=== PATIENT | female | born 1980 | race Caucasian/White ===

== ENCOUNTER 2018-02-12 14:41 | Emergency (ER) | payer OTHER ==
[2018-02-12 15:17] VITALS: TEMP 98
[2018-02-12] MEDS ORDERED: IBUPROFEN 600 MG TAB PO STA (15:45)
--- NOTE | 2018-02-12 16:26 | ED ---
General Adult HPI - General Chief complaint: Skin/Abscess/Foreign Body Stated complaint: abscess on arm Time Seen by Provider: 02/12/18 15:40 Source: patient, RN notes reviewed Mode of arrival: ambulatory Limitations: no limitations - History of Present Illness Initial comments: 37-year-old female presents emergency from from [facility] chief complaint swelling and redness to her left arm. Patient states she has not used heroin in 10 days. Patient is at [facility] for heroin and crack cocaine use. Patient states that she has had multiple skin infections in the past. Patient any fevers or chills. She states the pain starts at her wrists and goes her mid forearm. Denies any pain in her left axilla region. - Related Data Home Medications Medication Instructions Recorded Confirmed DULoxetine HCL [Cymbalta] 60 mg PO DAILY 02/12/18 02/12/18 Gabapentin 600 mg PO TID 02/12/18 02/12/18 Allergies Allergy/AdvReac Type Severity Reaction Status Date / Time carbamazepine [From Tegretol] Allergy Swelling Verified 02/12/18 16:13 clindamycin Allergy Rash/Hives Verified 02/12/18 16:13 divalproex sodium Allergy Swelling Verified 02/12/18 16:13 [From Depakote] erythromycin base Allergy Rash/Hives Verified 02/12/18 16:13 ketorolac [From Toradol] Allergy Rash/Hives Verified 02/12/18 16:13 naproxen Allergy Rash/Hives Verified 02/12/18 16:13 sulfamethoxazole Allergy Anaphylaxis Verified 02/12/18 16:13 [From Bactrim] trimethoprim [From Bactrim] Allergy Anaphylaxis Verified 02/12/18 16:13 trimethobenzamide AdvReac Hallucinati Verified 02/12/18 16:13 [From Tigan] ons Review of Systems ROS Statement: Those systems with pertinent positive or pertinent negative responses have been documented in the HPI. ROS Other: All systems not noted in ROS Statement are negative. Past Medical History Additional Past Medical History / Comment(s): borderline personality disorder, drug abuse hx, hepatitis C History of Any Multi-Drug Resistant Organisms: None Reported Past Surgical History: Section Past Psychological History: Anxiety, Depression Smoking Status: Current every day smoker Past Alcohol Use History: None Reported Past Drug Use History: Cocaine, Heroin General Exam Limitations: no limitations General appearance: alert, in no apparent distress Head exam: Present: atraumatic, normocephalic, normal inspection Respiratory exam: Present: normal lung sounds bilaterally. Absent: respiratory distress, wheezes, rales, rhonchi, stridor Cardiovascular Exam: Present: regular rate, normal rhythm, normal heart sounds. Absent: systolic murmur, diastolic murmur, rubs, gallop, clicks Extremities exam: Present: other (Extensive scabbing, wounds to extremities, there is erythema and swelling noted to left wrist region., No fluctuance mild warmth) Course Vital Signs 02/12/18 15:14 Temperature 98.0 F Pulse Rate 92 Respiratory 18 Rate Blood Pressure 111/70 O2 Sat by Pulse 98 Oximetry Procedures - Incision & Drainage Consent Obtained: verbal consent Site: upper extremity (Left wrist) Size (cm): 2 I&D Cleaning Method: Alcohol Wipe Sterile Field Used?: No Scalpel Used: #11 (All son was used to identify the location of abscess) Patient Tolerated Procedure: well, no complications Medical Decision Making - Medical Decision Making 37-year-old female sent emergency from for left arm wrist infection. Patient does have mild leukocytosis Ultram was obtained shows complex fluid collection 7 blade was used to open the abscess patient will continue Keflex and doxycycline outpatient. Return parameters were discussed. - Lab Data Result diagrams: 02/12/18 16:10 02/12/18 16:10 Lab Results 02/12/18 02/12/18 02/12/18 Range/Units 16:10 16:10 16:10 WBC 11.8 H (3.8-10.6) k/uL RBC 4.16 (3.80-5.40) m/uL Hgb 12.2 (11.4-16.0) gm/dL Hct 37.7 (34.0-46.0) % MCV 90.5 (80.0-100.0) fL MCH 29.2 (25.0-35.0) pg MCHC 32.3 (31.0-37.0) g/dL RDW 15.3 (11.5-15.5) % Plt Count 362 (150-450) k/uL Neutrophils % 69 % Lymphocytes % 20 % Monocytes % 5 % Eosinophils % 3 % Basophils % 0 % Neutrophils # 8.2 H (1.3-7.7) k/uL Lymphocytes # 2.4 (1.0-4.8) k/uL Monocytes # 0.6 (0-1.0) k/uL Eosinophils # 0.3 (0-0.7) k/uL Basophils # 0.1 (0-0.2) k/uL Hypochromasia Slight PT (9.0-12.0) sec INR (<1.2) APTT (22.0-30.0) sec Sodium 137 (137-145) mmol/L Potassium 5.0 (3.5-5.1) mmol/L Chloride 108 H (98-107) mmol/L Carbon Dioxide 22 (22-30) mmol/L Anion Gap 7 mmol/L BUN 12 (7-17) mg/dL Creatinine 0.76 (0.52-1.04) mg/dL Est GFR (CKD-EPI)AfAm >90 (>60 ml/min/1.73 sqM) Est GFR (CKD-EPI)NonAf >90 (>60 ml/min/1.73 sqM) Glucose 98 (74-99) mg/dL Plasma Lactic Acid Michael 1.0 (0.7-2.0) mmol/L Calcium 9.2 (8.4-10.2) mg/dL Total Bilirubin 0.3 (0.2-1.3) mg/dL AST 75 H (14-36) U/L ALT 73 H (9-52) U/L Alkaline Phosphatase 72 (38-126) U/L Total Protein 7.2 (6.3-8.2) g/dL Albumin 3.7 (3.5-5.0) g/dL 02/12/18 Range/Units 16:10 WBC (3.8-10.6) k/uL RBC (3.80-5.40) m/uL Hgb (11.4-16.0) gm/dL Hct (34.0-46.0) % MCV (80.0-100.0) fL MCH (25.0-35.0) pg MCHC (31.0-37.0) g/dL RDW (11.5-15.5) % Plt Count (150-450) k/uL Neutrophils % % Lymphocytes % % Monocytes % % Eosinophils % % Basophils % % Neutrophils # (1.3-7.7) k/uL Lymphocytes # (1.0-4.8) k/uL Monocytes # (0-1.0) k/uL Eosinophils # (0-0.7) k/uL Basophils # (0-0.2) k/uL Hypochromasia PT 9.4 (9.0-12.0) sec INR 0.9 (<1.2) APTT 25.4 (22.0-30.0) sec Sodium (137-145) mmol/L Potassium (3.5-5.1) mmol/L Chloride (98-107) mmol/L Carbon Dioxide (22-30) mmol/L Anion Gap mmol/L BUN (7-17) mg/dL Creatinine (0.52-1.04) mg/dL Est GFR (CKD-EPI)AfAm (>60 ml/min/1.73 sqM) Est GFR (CKD-EPI)NonAf (>60 ml/min/1.73 sqM) Glucose (74-99) mg/dL Plasma Lactic Acid Michael (0.7-2.0) mmol/L Calcium (8.4-10.2) mg/dL Total Bilirubin (0.2-1.3) mg/dL AST (14-36) U/L ALT (9-52) U/L Alkaline Phosphatase (38-126) U/L Total Protein (6.3-8.2) g/dL Albumin (3.5-5.0) g/dL Disposition Clinical Impression: Abscess of left arm Disposition: HOME SELF-CARE Condition: Stable Instructions: Abscess Incision and Drainage (ED) Additional Instructions: Please return to the Emergency Department if symptoms worsen or any other concerns. Is patient prescribed a controlled substance at d/c from ED?: No Referrals: Nonstaff,Physician [Primary Care Provider] - 1-2 days Time of Disposition: 17:50
[2018-02-12 16:45] LABS: Basophils # (A) 0.1 k/uL (0-0.2); Basophils % (A) 0 %; Eosinophils # (A) 0.3 k/uL (0-0.7); Eosinophils % (A) 3 %; HCT 37.7 % (34.0-46.0); HGB 12.2 gm/dL (11.4-16.0); Hypochromasia Slight; Lymphocytes # (A) 2.4 k/uL (1.0-4.8); Lymphocytes % (A) 20 %; MCH 29.2 pg (25.0-35.0); MCHC 32.3 g/dL (31.0-37.0); MCV 90.5 fL (80.0-100.0); Mean Platelet Volume 7.8; Monocytes # (A) 0.6 k/uL (0-1.0); Monocytes % (A) 5 %; Neutrophils # (A) 8.2 k/uL (1.3-7.7); Neutrophils % (A) 69 %; Platelet Count 362 k/uL (150-450); RBC 4.16 m/uL (3.80-5.40); RDW 15.3 % (11.5-15.5); WBC 11.8 k/uL (3.8-10.6)
--- NOTE | 2018-02-12 16:54 | US ---
EXAMINATION TYPE: US extremity nonvasc mass LT DATE OF EXAM: 02/12/2018 COMPARISON: NONE CLINICAL HISTORY: Pain- abscess versus thrombophlebitis. Patient has lump at left wrist and redness t hat extends up the arm. Scanned area of concern, left wrist over red raised area, there is a 2.0 x 1.5 cm complex area with i ncreased peripheral flow. The arm was scanned over red area, there is edema channels in the area. IMPRESSION: Complex hypoechoic area in the area of concern on the left wrist. I would consider possi bilities of hematoma or abscess.
[2018-02-12 16:55] LABS: INR 0.9 (<1.2); Partial Thromboplastin Time 25.4 sec (22.0-30.0); Prothrombin Time 9.4 sec (9.0-12.0)
--- NOTE | 2018-02-12 16:56 | XR ---
EXAMINATION TYPE: XR forearm LT DATE OF EXAM: 02/12/2018 COMPARISON: NONE HISTORY: Swelling TECHNIQUE: 2 views FINDINGS: There is subcutaneous edema on the posterior forearm extending to the wrist. There is also soft tissue swelling on the dorsum of the hand. I see no fracture nor dislocation. IMPRESSION: Soft tissue swelling. No fracture seen.
[2018-02-12 16:58] LABS: ALT 73 U/L (9-52); AST 75 U/L (14-36); Albumin 3.7 g/dL (3.5-5.0); Alkaline Phosphatase 72 U/L (38-126); Anion Gap 7 mmol/L; Blood Urea Nitrogen 12 mg/dL (7-17); Calcium 9.2 mg/dL (8.4-10.2); Carbon Dioxide 22 mmol/L (22-30); Glucose 98 mg/dL (74-99); Sodium 137 mmol/L (137-145); Total Bilirubin 0.3 mg/dL (0.2-1.3); Total Protein 7.2 g/dL (6.3-8.2)
[2018-02-12 17:06] LABS: Chloride 108 mmol/L (98-107)
[2018-02-12] MEDS ORDERED: ACETAMINOPHEN TAB 325 MG TAB PO STA (17:42)
[2018-02-12 18:06] VITALS: BP 107/59; PULSE 82; RESP 16
== END 2018-02-12 18:21 | disposition home or self-care (01) ==
LOC: EC 14:41
DX: L02.414 Cutaneous abscess of left upper limb (principal); D72.829 Elevated white blood cell count, unspecified; F41.9 Anxiety disorder, unspecified; F32.9 Major depressive disorder, single episode, unspecified; F17.200 Nicotine dependence, unspecified, uncomplicated; F60.3 Borderline personality disorder; Z79.899 Other long term (current) drug therapy; Z88.8 Allergy status to other drugs, medicaments and biological substances; Z88.1 Allergy status to other antibiotic agents; Z88.6 Allergy status to analgesic agent; Z88.2 Allergy status to sulfonamides
CPT/HCPCS: 10060; 36415; 80053; 83605; 85025; 85610; 85730; 87040; 99284

== ENCOUNTER 2018-06-24 16:10 | Emergency (ER) | payer OTHER ==
[2018-06-24 16:20] VITALS: TEMP 97.5
--- NOTE | 2018-06-24 16:52 | ED ---
Recheck HPI - General Chief Complaint: Recheck/Abnormal Lab/Rx Stated Complaint: med refill-psych meds Time Seen by Provider: 06/24/18 16:26 Source: patient Mode of arrival: ambulatory Limitations: no limitations - History of Present Illness Initial Comments: 37-year-old female with borderline personality, depression, bipolar, chronic migraines presenting today for chief complaint of medication refill. Patient states she has a rehabilitation home where she needs refills of her psych medications before she an return. She states that she takes celexa 20mg daily, lamictal 50mg daily and fioricet for headaches. Pt states she has a headache currently that she states is identical to previous headaches, denies any beech or gait changes, muscle weakness, sensation differences, visual changes, diplopia, nausea, vomiting, head injury, neck pain, fever, chills or night sweats. Patient states that Fioricet usually takes the pain away pretty quickly. Patient states she is simply here for medication refill as she attempted to get an appointment at but he told her he doesnt take her insurance and recommended coming to the ER for medication refill. Remaining ROS (-), patient denies any recent suicidal or homicidal ideations, shortness of breath, chest pain, back pain, abdominal pain, nausea or vomiting, numbness or tingling, dysuria or hematuria, constipation or diarrhea, or any other complaints. - Related Data Home Medications Medication Instructions Recorded Confirmed DULoxetine HCL [Cymbalta] 60 mg PO DAILY 02/12/18 02/12/18 Gabapentin 600 mg PO TID 02/12/18 02/12/18 Previous Rx's Medication Instructions Recorded Citalopram Hydrobromide [CeleXA] 20 mg PO DAILY 6 Days #6 tab 06/24/18 lamoTRIgine [LaMICtal] 50 mg PO DAILY 6 Days #6 tab 06/24/18 Allergies Allergy/AdvReac Type Severity Reaction Status Date / Time carbamazepine [From Tegretol] Allergy Swelling Verified 02/12/18 16:13 clindamycin Allergy Rash/Hives Verified 02/12/18 16:13 divalproex sodium Allergy Swelling Verified 02/12/18 16:13 [From Depakote] erythromycin base Allergy Rash/Hives Verified 02/12/18 16:13 ketorolac [From Toradol] Allergy Rash/Hives Verified 02/12/18 16:13 naproxen Allergy Rash/Hives Verified 02/12/18 16:13 sulfamethoxazole Allergy Anaphylaxis Verified 02/12/18 16:13 [From Bactrim] trimethoprim [From Bactrim] Allergy Anaphylaxis Verified 02/12/18 16:13 trimethobenzamide AdvReac Hallucinati Verified 02/12/18 16:13 [From Tigan] ons Review of Systems ROS Statement: Those systems with pertinent positive or pertinent negative responses have been documented in the HPI. ROS Other: All systems not noted in ROS Statement are negative. Past Medical History Additional Past Medical History / Comment(s): borderline personality disorder, drug abuse hx, hepatitis C History of Any Multi-Drug Resistant Organisms: None Reported Past Surgical History: Section Past Psychological History: Anxiety, Depression Smoking Status: Current every day smoker Past Alcohol Use History: None Reported Past Drug Use History: Cocaine, Heroin General Exam - General Exam Comments Initial Comments: General: The patient is awake and alert, in no distress, and does not appear acutely ill. Eye: +3 mm pupils are equal, round and reactive to light, extra-ocular movements are intact. No APD. No nystagmus. There is normal conjunctiva bilaterally. No signs of icterus. Ears, nose, mouth and throat: There are moist mucous membranes and no oral lesions. Neck: The neck is supple, there is no tenderness or JVD. Cardiovascular: There is a regular rate and rhythm. No murmur, rub or gallop is appreciated. Respiratory: Lungs are clear to auscultation, respirations are non-labored, breath sounds are equal. No wheezes, stridor, rales, or rhonchi. Gastrointestinal: Soft, non-distended, non-tender abdomen without masses or organomegaly noted. There is no rebound or guarding present. No CVA tenderness. Bowel sounds are unremarkable. Musculoskeletal: Normal ROM, no tenderness. Strength 5/5. Sensation intact. Radial pulses equal bilaterally 2+. Neurological: A&O x 3. CN II-XII intact, There are no obvious motor or sensory deficits. Coordination appears grossly intact. Speech is normal. Finger to nose coordinated, [id number] coordinated. No pronator drift. Normal gait. No nuchal rigidity. Skin: Skin is warm and dry and no rashes or lesions are noted. Psychiatric: Cooperative, appropriate mood & affect, normal judgment. Limitations: no limitations Course Vital Signs 06/24/18 06/24/18 16:17 18:48 Temperature 97.5 F L Pulse Rate 91 86 Respiratory 18 20 Rate Blood Pressure 125/88 138/66 O2 Sat by Pulse 100 98 Oximetry Medical Decision Making - Medical Decision Making She given 1 week medication refill. She was advised to follow-up at the [facility] for further care and treatment. Patient verbalized understanding. Patient states headache resolved with Fioricet. No focal neurological deficits on examination. No concerning historical features. At this time I feel pt is stable for discharge with outpatient f/u. Patient requesting discharge stating she wants to go home. Patient discharged appearing well discussing return parameters. Discussed case with attending provider Dr. Sanabria who was agreeable with plan and discharge. Disposition Clinical Impression: Encounter for medication refill Disposition: HOME SELF-CARE Condition: Good Instructions (If sedation given, give patient instructions): Medicine Refill ( ED) Additional Instructions: Please use medication as discussed. Please follow-up with family doctor in the next 2 days. Please return to emergency room if the symptoms increase or worsen or for any other concerns. Prescriptions: Citalopram Hydrobromide [CeleXA] 20 mg PO DAILY 6 Days #6 tab lamoTRIgine [LaMICtal] 50 mg PO DAILY 6 Days #6 tab Is patient prescribed a controlled substance at d/c from ED?: No Referrals: None,Stated [Primary Care Provider] - 1-2 days [facility] [NON-STAFF] - 1-2 days Time of Disposition: 18:25
[2018-06-24] MEDS ORDERED: BUTALB/APAP/CAFF 50-325-40MG TAB PO STA (17:16)
[2018-06-24 18:53] VITALS: BP 138/66; PULSE 86; RESP 20
== END 2018-06-24 18:48 | disposition home or self-care (01) ==
LOC: EC 16:10
DX: Z76.0 Encounter for issue of repeat prescription (principal); R51 Headache; F60.9 Personality disorder, unspecified; F32.9 Major depressive disorder, single episode, unspecified; F41.9 Anxiety disorder, unspecified; F17.200 Nicotine dependence, unspecified, uncomplicated; Z79.899 Other long term (current) drug therapy; Z88.1 Allergy status to other antibiotic agents; Z88.2 Allergy status to sulfonamides; Z88.6 Allergy status to analgesic agent; Z88.8 Allergy status to other drugs, medicaments and biological substances
CPT/HCPCS: 99282

== ENCOUNTER 2018-06-25 15:29 | Inpatient (IN) | payer MEDICAID, OTHER ==
[2018-06-25] MEDS ORDERED: LORazepam 1 MG TAB PO STA (15:56)
--- NOTE | 2018-06-25 16:12 | ED ---
General Adult HPI - General Chief complaint: Psychiatric Symptoms Stated complaint: Mental health Time Seen by Provider: 06/25/18 15:37 Source: patient, EMS, RN notes reviewed Mode of arrival: EMS Limitations: no limitations - History of Present Illness Initial comments: 37-year-old female with a past medical history of borderline personality disorder, depression, anxiety presents to the emergency department for chief complaint of suicidal thoughts. Patient states these thoughts started today. She states she has been clean off of heroin for 96 days but today she wants to overdose on heroin in order to kill herself. Patient states she has not had any of her medications for the past several days. She states she ran out of these.Patient has no other complaints at this time including shortness of breath , chest pain, abdominal pain, nausea or vomiting, headache, or visual changes. - Related Data Home Medications Medication Instructions Recorded Confirmed DULoxetine HCL [Cymbalta] 60 mg PO DAILY 02/12/18 06/25/18 Gabapentin 600 mg PO TID 02/12/18 06/25/18 Previous Rx's Medication Instructions Recorded lamoTRIgine [LaMICtal] 50 mg PO DAILY 6 Days #6 tab 06/24/18 Allergies Allergy/AdvReac Type Severity Reaction Status Date / Time carbamazepine [From Tegretol] Allergy Swelling Verified 06/25/18 16:10 clindamycin Allergy Rash/Hives Verified 06/25/18 16:10 divalproex sodium Allergy Swelling Verified 06/25/18 16:10 [From Depakote] erythromycin base Allergy Rash/Hives Verified 06/25/18 16:10 ketorolac [From Toradol] Allergy Rash/Hives Verified 06/25/18 16:10 naproxen Allergy Rash/Hives Verified 06/25/18 16:10 sulfamethoxazole Allergy Anaphylaxis Verified 06/25/18 16:10 [From Bactrim] trimethoprim [From Bactrim] Allergy Anaphylaxis Verified 06/25/18 16:10 trimethobenzamide AdvReac Hallucinati Verified 06/25/18 16:10 [From Tigan] ons Review of Systems ROS Statement: Those systems with pertinent positive or pertinent negative responses have been documented in the HPI. ROS Other: All systems not noted in ROS Statement are negative. Past Medical History Additional Past Medical History / Comment(s): borderline personality disorder, drug abuse hx, hepatitis C History of Any Multi-Drug Resistant Organisms: None Reported Past Surgical History: Section Past Psychological History: Anxiety, Depression Smoking Status: Current every day smoker Past Alcohol Use History: None Reported Past Drug Use History: None Reported, Cocaine, Heroin General Exam Limitations: no limitations General appearance: anxious (Pacing the room) Head exam: Present: atraumatic, normocephalic, normal inspection Eye exam: Present: normal appearance, PERRL, EOMI. Absent: scleral icterus, conjunctival injection, periorbital swelling ENT exam: Present: normal exam, mucous membranes moist Neck exam: Present: normal inspection, full ROM. Absent: tenderness, meningismus, lymphadenopathy Respiratory exam: Present: normal lung sounds bilaterally. Absent: respiratory distress, wheezes, rales, rhonchi, stridor Cardiovascular Exam: Present: regular rate, normal rhythm, normal heart sounds. Absent: systolic murmur, diastolic murmur, rubs, gallop, clicks GI/Abdominal exam: Present: soft, normal bowel sounds. Absent: distended, tenderness, guarding, rebound, rigid Neurological exam: Present: alert, oriented X3, CN II-XII intact Psychiatric exam: Present: anxious (Pacing the room), suicidal ideation. Absent : homicidal ideation Course Vital Signs 06/25/18 15:38 Temperature 97.6 F Pulse Rate 99 Respiratory 22 Rate Blood Pressure 122/89 O2 Sat by Pulse 98 Oximetry - Reevaluation(s) Reevaluation #1: 06/25/18 19:11 sitter at bedside Medical Decision Making - Medical Decision Making 37-year-old female with a past medical history of borderline personality disorder, depression, anxiety presents to the emergency department for a chief suicidal thoughts. Patient states she is going to overdose on heroin and kill herself in [place]. Patient anxious and pacing the room. Patient was evaluated by EPS who recommends inpatient admission with certification. Discussed this with Dr. Deborah joe cert the patient. Disposition Clinical Impression: Suicidal thoughts Disposition: ADMITTED IP TO THIS HOSP Condition: Fair Is patient prescribed a controlled substance at d/c from ED?: No Referrals: None,Stated [Primary Care Provider] - 1-2 days Time of Disposition: 19:11
[2018-06-25 20:22] LABS: Amphetamine Screen,Urine Not Detected (NotDetected); Barbiturate Screen,Urine Not Detected (NotDetected); Benzodiazepines Screen,Urine Not Detected (NotDetected); Cocaine Screen,Urine Not Detected (NotDetected); Methadone Screen, Urine Not Detected (NotDetected); Opiate Screen,Urine Not Detected (NotDetected); Oxycodone Screen, Urine Not Detected (NotDetected); Phencyclidine Screen,Urine Not Detected (NotDetected); Tricyclic Antidepressant,Urine Not Detected (NotDetected); Urn Cannabinoid Scrn Not Detected (NotDetected)
[2018-06-25] MEDS ORDERED: MAGNESIUM HYDROXIDE 2,400 MG/10 ML CUP PO PRN (20:58)
[2018-06-25] MEDS ORDERED: ACETAMINOPHEN TAB 325 MG TAB PO PRN (20:58)
[2018-06-25] MEDS ORDERED: MAG HYDROX/AL HYDROX/SIMETH 30 ML CUP PO PRN (20:58)
[2018-06-25] MEDS ORDERED: ZIPRASIDONE 20 MG VIAL IM PRN (20:58)
[2018-06-25] MEDS ORDERED: flUPHENAZine 2.5 MG/ML (MDV) 10 ML VIAL IM ONE (22:21)
[2018-06-25] MEDS: GABAPENTIN 300 MG CAP PO SCH ×3 (22:33→23:55)
[2018-06-25] MEDS: NICOTINE POLACRILEX 2 MG GUM BUCCAL PRN (23:52)
[2018-06-26] MEDS: GABAPENTIN 300 MG CAP PO SCH ×3 (08:25→20:48)
[2018-06-26] MEDS: NICOTINE POLACRILEX 2 MG GUM BUCCAL PRN ×4 (08:36→20:48)
[2018-06-26] MEDS ORDERED: NICOTINE 14MG/24HR PATCH TRANSDERM SCH (09:00)
--- NOTE | 2018-06-26 10:11 | P.HP ---
Psychiatric H&P - . H&P Date: 06/26/18 History & Physical: Allergies Allergy/AdvReac Type Severity Reaction Status Date / Time carbamazepine [From Tegretol] Allergy Swelling Verified 06/25/18 16:10 clindamycin Allergy Rash/Hives Verified 06/25/18 16:10 divalproex sodium Allergy Swelling Verified 06/25/18 16:10 [From Depakote] erythromycin base Allergy Rash/Hives Verified 06/25/18 16:10 ketorolac [From Toradol] Allergy Rash/Hives Verified 06/25/18 16:10 naproxen Allergy Rash/Hives Verified 06/25/18 16:10 sulfamethoxazole Allergy Anaphylaxis Verified 06/25/18 16:10 [From Bactrim] trimethoprim [From Bactrim] Allergy Anaphylaxis Verified 06/25/18 16:10 trimethobenzamide AdvReac Hallucinati Verified 06/25/18 16:10 [From Tigan] ons Vital Signs Temp 98.1 F 06/25/18 22:14 Pulse 107 H 06/26/18 08:26 Resp 20 06/26/18 08:26 BP 142/65 06/26/18 08:26 Pulse Ox 100 06/25/18 22:14 Intake & Output 06/25/18 06/26/18 06/26/18 18:59 06:59 18:59 Weight 86.183 kg Laboratory Last Values Urine Opiates Screen Not Detected (NotDetected) 06/25/18 19:00 Ur Oxycodone Screen Not Detected (NotDetected) 06/25/18 19:00 Urine Methadone Screen Not Detected (NotDetected) 06/25/18 19:00 Ur Propoxyphene Screen Not Detected (NotDetected) 06/25/18 19:00 Ur Barbiturates Screen Not Detected (NotDetected) 06/25/18 19:00 U Tricyclic Antidepress Not Detected (NotDetected) 06/25/18 19:00 Ur Phencyclidine Scrn Not Detected (NotDetected) 06/25/18 19:00 Ur Amphetamines Screen Not Detected (NotDetected) 06/25/18 19:00 U Methamphetamines Scrn Not Detected (NotDetected) 06/25/18 19:00 U Benzodiazepines Scrn Not Detected (NotDetected) 06/25/18 19:00 Urine Cocaine Screen Not Detected (NotDetected) 06/25/18 19:00 U Marijuana (THC) Screen Not Detected (NotDetected) 06/25/18 19:00 Assessment and Plan Assessment: 37-year-old female with a past medical history of borderline personality disorder, depression, anxiety presents to the emergency department for chief complaint of suicidal thoughts. Patient states these thoughts started today. She states she has been clean off of heroin for 96 days but today she wants to overdose on heroin in order to kill herself. Patient states she has not had any of her medications for the past several days. She states she ran out of these.Patient has no other complaints at this time including shortness of breath , chest pain, abdominal pain, nausea or vomiting, headache, or visual changes. Patient irritable upon admission, resistive with skin assessment, and reporting that she is withdrawing from Suboxone. Patient did allow bid writer to complete skin assessment but was very irritated. Patient was medication seeking immediately upon admission. Patient was given food and water and shown how to use the phone. Patient upset that she could not her shirt as it had a metal piece on it that she could harm herself with. Patient was given opportunity by mental health technician trainee to look through the clothes closet. Patient agitated about water in room that it is not "large enough to wash my face. I can't use that water pressure to wash my face." Water pressure appears to be working adequately in sink. Patient observed by tech to kick door to her bedroom, yelling and being disruptive to unit. Dr. Jack called who ordered Prolixin 1.25mg IM. Patient yelling in the jean that she is not getting the medication. "I am not taking no anti-psychotic. That wack ass doctor. I need an anti- anxiety medication bitch. Fuck you!" Security was called for medication assistance. EPS came to floor for assistance who was able to speak with patient to cooperate with medication administration. Prolixin 1.25mg IM given at 22:29. Patient asking bid writer to contact the doctor to increase her Neurontin as she normally takes 600mg PO not 300mg. Patient reporting she needs something for withdrawal and anxiety and that she will not be able to sleep. - Related Data Home Medications Medication Instructions Recorded Confirmed DULoxetine HCL [Cymbalta] 60 mg PO DAILY 02/12/18 06/25/18 Gabapentin 600 mg PO TID 02/12/18 06/25/18 Previous Rx's Medication Instructions Recorded lamoTRIgine [LaMICtal] 50 mg PO DAILY 6 Days #6 tab 06/24/18 Allergies Allergy/AdvReac Type Severity Reaction Status Date / Time carbamazepine [From Tegretol] Allergy Swelling Verified 06/25/18 16:10 clindamycin Allergy Rash/Hives Verified 06/25/18 16:10 divalproex sodium Allergy Swelling Verified 06/25/18 16:10 [From Depakote] erythromycin base Allergy Rash/Hives Verified 06/25/18 16:10 ketorolac [From Toradol] Allergy Rash/Hives Verified 06/25/18 16:10 naproxen Allergy Rash/Hives Verified 06/25/18 16:10 sulfamethoxazole Allergy Anaphylaxis Verified 06/25/18 16:10 [From Bactrim] trimethoprim [From Bactrim] Allergy Anaphylaxis Verified 06/25/18 16:10 trimethobenzamide AdvReac Hallucinati Verified 06/25/18 16:10 [From Tigan] ons Past Medical History Additional Past Medical History / Comment(s): borderline personality disorder, drug abuse hx, hepatitis C History of Any Multi-Drug Resistant Organisms: None Reported Past Surgical History: Section Past Psychological History: Anxiety, Depression Smoking Status: Current every day smoker Past Alcohol Use History: None Reported Past Drug Use History: None Reported, Cocaine, Heroin Mental Status Examination - this is a 37-year-old female who appears agitated sweating unable to focus and concentrate argues and quite agitated. States she has a history of bipolar affective disorder and she moved from [place] to this area and can't find a doctor take her insurance which is total health care. Patient is demanding and as reported above became quite hysterical during the night. General Appearance: [casual, bizarre, appears older than stated age, Speech/Language: [spontaneous, slow, monotone, expressive, soft] Attitude/Behavior: [cooperative, indifferent] Mood: [euthymic, anxious, elated Affect: [full range] Orientation: [not time, person, place situation] Thought Content: [wnl Risk Factors: [She suicidal (ideations, plan), but not and/or Homicidal ( ideations, plan), other] Perception: [ hallucinations (auditory which has been a lifelong not an acute issue Thought Processes: [goal-oriented, Concentration/Attention Span: [wnl] [Per observation and interview with the patient] Recent Memory: [wnl] [ 2 or 3 out of 3 in 3 minutes] Remote Memory: [wnl] [past events, as related history] Intelligence: [below average[based on history, based on vocabulary, syntax, grammar, and content] Judgement: [Poor] [per patient's behavior/history of present illness] Insight: [poor [understanding severity of illness/history of present illness] Psychiatric diagnoses: Bipolar affective disorder manic presentation and Suboxone withdrawal Plan of care: Librium 20 mg 4 times a day, Lamictal 50 mg twice a day, Catapres 0.1 mg twice a day, Celexa 40 mg by mouth daily. She is admitted on a involuntary basis due to her bizarre suicidal ideation at the time of admission. She put on 15 minute checks usual [facility] therapeutic environment. She'll be evaluated by medicine, psychiatry, nursing staff, social work and occupational therapy. She will be expected to go to groups and take her medication as ordered and to be appropriate on the inpatient unit in the [facility] therapeutic environment. Estimated length of stay 7 days (1) Bipolar affective disorder, current episode hypomanic Current Visit: Yes Status: Acute Priority: High Code(s): F31.0 - BIPOLAR DISORDER, CURRENT EPISODE HYPOMANIC SNOMED Code(s): 87336584 Time with Patient: Greater than 30
[2018-06-26] MEDS ORDERED: lamoTRIgine 25 MG TAB PO ONE (10:17)
[2018-06-26] MEDS ORDERED: CITALOPRAM HYDROBROMIDE 20 MG TAB PO STA (10:18)
[2018-06-26] MEDS ORDERED: cloNIDine HCL 0.1 MG TAB PO STA (10:18)
[2018-06-26 10:42] LABS: Appearance,Urine Clear (Clear); Bilirubin,Urine Negative (Negative); Blood,Urine Negative (Negative); Color,Urine Light Yellow; Glucose,Urine (UA) Negative (Negative); Ketones,Urine Negative (Negative); Leukocyte Esterase,Urine Negative (Negative); Nitrite,Urine Negative (Negative); Protein,Urine Negative (Negative); Urobilinogen,Urine <2.0 mg/dL (<2.0)
[2018-06-26] MEDS: LOPERAMIDE 2 MG CAP PO PRN ×2 (14:41→20:48)
[2018-06-26] MEDS: lamoTRIgine 25 MG TAB PO SCH (20:48)
--- NOTE | 2018-06-26 20:53 | P.MDCNMH ---
History of Present Illness H&P Date: 06/26/18 Chief Complaint: medical management 37-year-old female with history of depression and anxiety and borderline personality patient presented to the hospital for suicidal ideation. Patient otherwise denies any medical history. She has history of heroin abuse but has been clean for 90 days now she claims that she uses Suboxone this will need to be verified with prescribing physician. Patient reported greenish vaginal discharge with vaginal pain and right lower abdominal discomfort which has been going on for a while. She reports that she moved from [place] and lost follow- up with her doctors. Otherwise denies any fevers or chills nausea or vomiting hematuria or dysuria denies any chest pain or trouble breathing. Review of Systems Pertinent positives as noted in HPI. All other systems were reviewed and are negative Past Medical History Additional Past Medical History / Comment(s): borderline personality disorder, drug abuse hx, hepatitis C History of Any Multi-Drug Resistant Organisms: None Reported Past Surgical History: Section Past Psychological History: Anxiety, Depression Smoking Status: Current every day smoker Past Alcohol Use History: None Reported Past Drug Use History: None Reported, Cocaine, Heroin Medications and Allergies Home Medications Medication Instructions Recorded Confirmed Type DULoxetine HCL [Cymbalta] 60 mg PO DAILY 02/12/18 06/25/18 History Gabapentin 600 mg PO TID 02/12/18 06/25/18 History lamoTRIgine [LaMICtal] 50 mg PO DAILY 6 Days #6 tab 06/24/18 06/25/18 Rx Allergies Allergy/AdvReac Type Severity Reaction Status Date / Time carbamazepine [From Tegretol] Allergy Swelling Verified 06/25/18 16:10 clindamycin Allergy Rash/Hives Verified 06/25/18 16:10 divalproex sodium Allergy Swelling Verified 06/25/18 16:10 [From Depakote] erythromycin base Allergy Rash/Hives Verified 06/25/18 16:10 ketorolac [From Toradol] Allergy Rash/Hives Verified 06/25/18 16:10 naproxen Allergy Rash/Hives Verified 06/25/18 16:10 sulfamethoxazole Allergy Anaphylaxis Verified 06/25/18 16:10 [From Bactrim] trimethoprim [From Bactrim] Allergy Anaphylaxis Verified 06/25/18 16:10 trimethobenzamide AdvReac Hallucinati Verified 06/25/18 16:10 [From Tigan] ons Physical Exam Vitals: Vital Signs Temp Pulse Pulse Resp BP BP Pulse Ox 06/26/18 13:06 96 20 118/69 06/26/18 08:26 107 H 20 142/65 06/25/18 23:56 100 16 123/80 06/25/18 22:14 98.1 F 89 16 105/51 100 06/25/18 21:15 98.1 F 82 20 103/65 95 06/25/18 19:30 98.3 F 91 18 114/61 97 Constitutional: No acute distress, conversant, pleasant Eyes: Anicteric sclerae, moist conjunctiva, no lid-lag Pupils equal round reactive to light ENMT: NC/AT Oropharynx clear, no erythema, exudates Neck: Supple, FROM, no masses, or JVD No carotid bruits No thyromegaly Lungs: Clear to auscultation Clear to percussion Normal respiratory effort, no accessory muscle use Cardiovascular: Heart regular in rate and rhythm, No murmurs, gallops, or rubs No peripheral edema Abdominal: Soft Slight discomfort to deep palpation of the right lower quadrant , no guarding, no rebound or rigidity Abdomen moving with respiration Normoactive bowel sounds No hepatomegaly, No splenomegaly No palpable mass No abdominal wall hernia noted Vaginal exam deferred at this point, we'll place ROOFER consult Skin: Normal temperature, tone, texture, turgor No induration No subcutaneous nodules No rash, lesions No ulcers Extremities: No digital cyanosis No clubbing Pedal pulses intact and symmetrical Radial pulses intact and symmetrical No calf tenderness Psychiatric: Alert and oriented to person, place and time Appropriate affect fair judgment Neuro Muscles Strength 5/5 in all 4 extremities Sensation to light touch grossly present throughout Cranial nerves II-XII grossly intact No focal sensory deficits Lymphatics: no palpable cervical or supraclavicular , or inguinal lymph nodes Cranial Nerve Examination - Cranial Nerves Cranial Nerve II- Optic: Intact Cranial Nerve III- Oculomotor: Intact Cranial Nerve IV- Trochlear: Intact Cranial Nerve V- Trigeminal: Intact Cranial Nerve - Abducens: Intact Cranial Nerve VII- Facial: Intact Cranial Nerve VIII- Auditory: Intact Cranial Nerve IX- Glossopharyngeal: Intact Cranial Nerve X- Vagus: Intact Cranial Nerve XI- Accessory: Intact Cranial Nerve XII- Hypoglossal: Intact Assessment and Plan Assessment: 37-year-old female with no significant past medical history presented due to suicidal ideation patient has history of depression and anxiety. Patient denied any medical complaints at this point except for greenish vaginal discharge and vaginal tenderness that has been going on for a while. Patient's UA was reviewed and is negative will check CBC. Patient is afebrile. I did discuss the case with ROOFER, will await further testing on CBC to evaluate if there is any leukocytosis and will monitor her vital signs for any chance of spiking fever based on that will make further recommendations. Plan: Suicidal ideation Depression and anxiety Management per psych History of heroin abuse on Suboxone This will need to be verified with prescribing physician Deferred to psychiatry Patient claims that she hasn't taken Suboxone for over a week now, usually symptoms of withdrawal are within the first 2 weeks of cessation and patient is not experiencing any active symptoms of withdrawal (which is normally flulike symptoms, abdominal cramps and diarrhea) Tobacco smoking Patient counseled to quit smoking Nicotine replacement therapy offered Patient claims to have greenish vaginal discharge with vaginal tenderness ROOFER consult placed UA reviewed and is negative Check CBC, to evaluate for leukocytosis Low risk for DVT patient is ambulatory Thank you for allowing us to participate in the care of this patient. Do not hesitate to contact us with questions. Someone can be reached from the [facility] hospitalist group at all hours of the day at [phone].
[2018-06-26] MEDS: cloNIDine HCL 0.1 MG TAB PO SCH (22:17)
[2018-06-27 07:36] LABS: Basophils # (A) 0.1 k/uL (0-0.2); Basophils % (A) 1 %; Eosinophils # (A) 0.4 k/uL (0-0.7); Eosinophils % (A) 4 %; HGB 12.3 gm/dL (11.4-16.0); Lymphocytes # (A) 2.7 k/uL (1.0-4.8); Lymphocytes % (A) 26 %; MCH 29.3 pg (25.0-35.0); MCHC 31.7 g/dL (31.0-37.0); MCV 92.5 fL (80.0-100.0); Mean Platelet Volume 7.5; Monocytes # (A) 0.6 k/uL (0-1.0); Monocytes % (A) 5 %; Neutrophils # (A) 6.6 k/uL (1.3-7.7); Neutrophils % (A) 62 %; Platelet Count 436 k/uL (150-450); RBC 4.21 m/uL (3.80-5.40); RDW 15.7 % (11.5-15.5); WBC 10.6 k/uL (3.8-10.6)
[2018-06-27] MEDS: CITALOPRAM HYDROBROMIDE 20 MG TAB PO SCH (07:51)
[2018-06-27] MEDS: lamoTRIgine 25 MG TAB PO SCH ×2 (07:51→20:58)
[2018-06-27] MEDS: GABAPENTIN 300 MG CAP PO SCH ×3 (07:51→20:58)
[2018-06-27] MEDS: cloNIDine HCL 0.1 MG TAB PO SCH ×3 (07:52→22:52)
[2018-06-27] MEDS: NICOTINE POLACRILEX 2 MG GUM BUCCAL PRN ×5 (08:38→21:04)
--- NOTE | 2018-06-27 10:37 | P.PN ---
Subjective Progress Note Date: 06/27/18 Principal diagnosis: Bipolar affective disorder manic presentation and Suboxone withdrawal 06/27/2018: Chart reviewed, nursing staff consulted whereby she stated that she is not happy being involuntary in the hospital. Chief complaint today is headache and nausea does not describe any suicidal ideation but affect is broad lively and expansive. Objective - Vital Signs Vital signs: Vital Signs Temp 97.8 F 06/27/18 06:18 Pulse 80 06/27/18 07:53 Resp 18 06/27/18 07:53 BP 112/58 06/27/18 07:53 Pulse Ox 100 06/25/18 22:14 Intake & Output 06/26/18 06/27/18 06/27/18 18:59 06:59 18:59 Weight 91.1 kg - Labs CBC & Chem 7: 06/27/18 07:05 Labs: Abnormal Lab Results - Last 24 Hours (Table) 06/27/18 Range/Units 07:05 RDW 15.7 H (11.5-15.5) % Assessment and Plan Assessment: 37-year-old female with a past medical history of borderline personality disorder, depression, anxiety presents to the emergency department for chief complaint of suicidal thoughts. Patient states these thoughts started today. She states she has been clean off of heroin for 96 days but today she wants to overdose on heroin in order to kill herself. Patient states she has not had any of her medications for the past several days. She states she ran out of these.Patient has no other complaints at this time including shortness of breath , chest pain, abdominal pain, nausea or vomiting, headache, or visual changes. Patient irritable upon admission, resistive with skin assessment, and reporting that she is withdrawing from Suboxone. Patient did allow technical report writer to complete skin assessment but was very irritated. Patient was medication seeking immediately upon admission. Patient was given food and water and shown how to use the phone. Patient upset that she could not her shirt as it had a metal piece on it that she could harm herself with. Patient was given opportunity by mental health electrical cad technician to look through the clothes closet. Patient agitated about water in room that it is not "large enough to wash my face. I can't use that water pressure to wash my face." Water pressure appears to be working adequately in sink. Patient observed by tech to kick door to her bedroom, yelling and being disruptive to unit. Dr. Jack called who ordered Prolixin 1.25mg IM. Patient yelling in the jean that she is not getting the medication. "I am not taking no anti-psychotic. That wack ass doctor. I need an anti- anxiety medication bitch. Fuck you!" Security was called for medication assistance. EPS came to floor for assistance who was able to speak with patient to cooperate with medication administration. Prolixin 1.25mg IM given at 22:29. Patient asking technical report writer to contact the doctor to increase her Neurontin as she normally takes 600mg PO not 300mg. Patient reporting she needs something for withdrawal and anxiety and that she will not be able to sleep. - Mental Status Examination - this is a 37-year-old female who appears agitated sweating unable to focus and concentrate argues and quite agitated. States she has a history of bipolar affective disorder and she moved from [place] to this area and can't find a doctor take her insurance which is total health care. Patient is demanding and as reported above became quite hysterical during the night. General Appearance: [casual, bizarre, appears older than stated age, Speech/Language: [spontaneous, slow, monotone, expressive, soft] Attitude/Behavior: [ indifferent] Mood: [ anxious Affect: [full range] Orientation: [not time, person, place situation] Thought Content: [wnl Risk Factors: [She suicidal (ideations, plan), but not and/or Homicidal ( ideations, plan), other] Perception: [ hallucinations (auditory which has been a lifelong not an acute issue Thought Processes: [goal-oriented, Concentration/Attention Span: [wnl] [Per observation and interview with the patient] Recent Memory: [wnl] [ 2 or 3 out of 3 in 3 minutes] Remote Memory: [wnl] [past events, as related history] Intelligence: [below average[based on history, based on vocabulary, syntax, grammar, and content] Judgement: [Poor] [per patient's behavior/history of present illness] Insight: [poor [understanding severity of illness/history of present illness] Psychiatric diagnoses: Bipolar affective disorder manic presentation and Suboxone withdrawal Plan of care: Librium 20 mg 4 times a day, Lamictal 50 mg twice a day, Catapres 0.1 mg twice a day, Celexa 40 mg by mouth daily. She is admitted on a involuntary basis due to her bizarre suicidal ideation at the time of admission. She put on 15 minute checks usual [facility] therapeutic environment. She'll be evaluated by medicine, psychiatry, nursing staff, social work and occupational therapy. She will be expected to go to groups and take her medication as ordered and to be appropriate on the inpatient unit in the [facility] therapeutic environment. 06/27/2018: Continue Librium increase Lamictal 75 mg twice a day continue Catapres 0.1 mg twice a day and Celexa 40 mg by mouth daily. Maintain 15 minute checks for safety and usual protocol for the mental health unit. (1) Bipolar affective disorder, current episode hypomanic Current Visit: Yes Status: Acute Priority: High Code(s): F31.0 - BIPOLAR DISORDER, CURRENT EPISODE HYPOMANIC SNOMED Code(s): 51342918 Time with Patient: Less than 30
[2018-06-27 15:31] VITALS: BMI 34.0
[2018-06-27] MEDS ORDERED: VENLAFAXINE HCL ER 75 MG CAP PO SCH (21:00)
[2018-06-28] MEDS: NICOTINE POLACRILEX 2 MG GUM BUCCAL PRN ×3 (07:09→15:55)
[2018-06-28] MEDS: CITALOPRAM HYDROBROMIDE 20 MG TAB PO SCH (08:30)
[2018-06-28] MEDS: cloNIDine HCL 0.1 MG TAB PO SCH (08:31)
[2018-06-28] MEDS: GABAPENTIN 300 MG CAP PO SCH ×3 (08:31→20:59)
[2018-06-28] MEDS: lamoTRIgine 25 MG TAB PO SCH ×2 (08:32→20:59)
--- NOTE | 2018-06-28 09:27 | P.PN ---
Progress Note - Text Progress Note Date: 06/28/18 I was consulted regarding vaginal discharge on this patient. I personally spoke with Dr. Ybarra, consulting medicine physician regarding this consult. He indicated this was not an acute issue and can be addressed in the outpatient setting where adequate gynecologic examination is much easier to perform. I have reviewed her CBC which is normal And had not been contacted regarding any further acute gynecologic problem. I look forward to addressing this patient's gynecologic concerns in a timely fashion in the outpatient basis unless otherwise contacted.
--- NOTE | 2018-06-28 11:37 | P.PN ---
Progress Note - Text Interval history: The patient is found in group she follows me to an interview room. She indicates that her mood is better today. The psychiatric evaluation was reviewed and her case was discussed during treatment team meeting. She presented with some suicidal thoughts in the context of withdrawing from Suboxone. She feels much better today she is attending groups. Staff report that her behavior is much improved. We reviewed her psychotropic medications. She states that she has done best on the Celexa and the Lamictal. She has been refusing the Librium and Catapres and she feels worse when she takes those medications. She has recently moved to this area. She is residing at [facility]. She plans on returning there after discharge. She states she does have a pending court date for a home invasion charge and 3 violations of probation. Those offenses were in [facility]. Mental status exam: The patient is alert she stressor own clothing hygiene grooming are adequate. She has a nose piercing she has a tattoo at her neckline. She indicates her mood is much improved affect is congruent and appears euthymic. She reports no suicidal or homicidal ideation intent or plan. She is endorsing no auditory or visual hallucinations she is endorsing no specific delusions. She demonstrates no tangential thinking loose associations or flight of ideas. She does not appear hypomanic or manic. She demonstrates no verbal or physical aggressiveness she demonstrates no repetitive involuntary movements. She is oriented to person place and date. Insight and judgment improving. Plan: The patient presents with a history of mood instability borderline personality disorder and substance use. She presented withdrawing from Suboxone and had subsequent dysphoric thoughts. She is feeling physically better her mood is improving. A second clinical certificate was completed so we are awaiting a deferral conference. We will continue the Lamictal 75 mg twice daily, continue Celexa 40 mg daily, we will discontinue Librium Catapres and Effexor. Anticipated discharge in the next 1-2 days. We will continue to monitor her for safety. Vital signs reviewed.
[2018-06-29 01:36] VITALS: BP 118/69; PULSE 76; RESP 15; TEMP 97.8
[2018-06-29] MEDS: GABAPENTIN 300 MG CAP PO SCH (08:05)
[2018-06-29] MEDS: CITALOPRAM HYDROBROMIDE 20 MG TAB PO SCH (08:05)
[2018-06-29] MEDS: lamoTRIgine 25 MG TAB PO SCH (08:06)
[2018-06-29] MEDS: NICOTINE POLACRILEX 2 MG GUM BUCCAL PRN ×2 (08:44→10:52)
--- NOTE | 2018-06-29 09:13 | P.DS ---
Providers Date of admission: 06/25/18 20:45 Expected date of discharge: 06/29/18 Attending physician: Giorgio Crum Consults: 06/25/18 20:58 Consult Physician Routine Consulting Provider: Lana Norton Consult Reason/Comments: medical management Do you want consulting provider notified?: Already Contacted 06/26/18 20:23 Consult Physician Routine Consulting Provider: Nallely Norton Reason/Comments: greenish vaginal discharge, vaginal pain , RLQ pain Do you want consulting provider notified?: Yes Primary care physician: Stated None - Discharge Diagnosis(es) (1) Bipolar disorder Current Visit: Yes Status: Acute Priority: High (2) Opioid use disorder Current Visit: Yes Status: Acute Priority: High Hospital Course: Brief summary of admission note: This patient is a 37-year-old female who was admitted to the mental health unit with complaint of suicidal ideation. The patient has a history of heroin use and had been clean for 96 days but was using Suboxone. She had been off of that medication for several days. She felt overwhelmed and hopeless. Upon admission she was noted to be irritable likely due to withdrawal from Suboxone. For full details please refer to the psychiatric evaluation by Dr. Jack on 06/26/2018. Summary of hospital course: The patient was admitted to the mental health unit a second clinical certificate was completed by Dr. Jack. The patient has a deferral conference scheduled at 1 PM today. She indicates that she plans on signing the deferral agreement. The patient was restarted on her Celexa and Lamictal. She states the medications have been helpful in the past and she wanted to continue those as well as the Neurontin. The patient has been attending group she has demonstrated no agitated behavior while under my care. I assumed care of the patient beginning yesterday. The patient plans on returning to [facility]. She is asking that we help her arrange outpatient mental health services. She was seen by internal medicine during the course of her stay. Social work met with the patient several times to complete a psychosocial assessment and to begin discharge planning. The patient feels that she is sufficiently stabilized and is reporting no suicidal ideation. She does have an upcoming court hearing and is hoping to be enrolled in mental health court for the charges of home invasion and 3 probation violations. Mental status exam: The patient is an overweight female appearing her stated age. Hygiene and grooming are adequate. Speech is fluent spontaneous nonpressured. She reports her mood is improved. Affect is euthymic. She reports having no suicidal or homicidal ideation intent or plan. She demonstrates no verbal or physical aggressiveness she demonstrates no involuntary repetitive movements. Thought process is linear she demonstrates no tangential thinking loose associations or flight of ideas she does not appear hypomanic or manic. He is endorsing no auditory or visual hallucinations or any specific delusions. There is no observed evidence of psychosis. She remains oriented to person place and date. She spontaneously reports future oriented thinking. Impressions 1. Bipolar disorder most recent depressed, opioid use disorder 2. Borderline personality disorder traits 3. Court hearing pending regarding criminal charges Plan: The patient will be discharged mental health unit today. She will continue on Celexa 40 mg daily, Lamictal 75 mg twice daily, Neurontin 600 mg 3 times daily area and she is instructed to abstain from any use of alcohol or marijuana or any illicit drugs. We discussed that use of these substances will precipitate mood symptoms and elevate her safety risk. She does not feel that she requires inpatient chemical dependency treatment. She will be returning to [facility] and plans to attend NA meetings and obtain a sponsor. She does not wish to pursue any medication at this time to address her chemical dependency. At this time there is no imminent safety risk she is appropriate for transition to outpatient care. She is instructed to return to the hospital with any acute safety concerns. Patient Condition at Discharge: Stable Plan - Discharge Summary New Discharge Prescriptions: New Citalopram Hydrobromide [CeleXA] 40 mg PO DAILY #30 tab lamoTRIgine [LaMICtal] 75 mg PO BID #90 tab Nicotine Polacrilex [Nicorette] 2 mg BUCCAL Q2HR PRN #60 gum PRN Reason: Nicotine Cravings Continue Gabapentin 600 mg PO TID #45 tablet Discontinued DULoxetine HCL [Cymbalta] 60 mg PO DAILY lamoTRIgine [LaMICtal] 50 mg PO DAILY 6 Days #6 tab Discharge Medication List Citalopram Hydrobromide [CeleXA] 40 mg PO DAILY #30 tab 06/29/18 [Rx] Gabapentin 600 mg PO TID #45 tablet 06/29/18 [Rx] Nicotine Polacrilex [Nicorette] 2 mg BUCCAL Q2HR PRN #60 gum 06/29/18 [Rx] lamoTRIgine [LaMICtal] 75 mg PO BID #90 tab 06/29/18 [Rx] Follow up Appointment(s)/Referral(s): Nallely Norton MD [STAFF PHYSICIAN] - 1 Week (Patient is to follow up with Dr. Norton as outpatient regarding vaginal discharge with tenderness.) None,Stated [Primary Care Provider] - 1-2 days
[2018-06-29 10:35] LABS: C. trachomatis,PCR Negative (Neg,Equiv); Chlamydia trachomatis Source Urine
[2018-06-29 15:54] LABS: N. gonorrhoeae,PCR Negative (Neg,Equiv); Neisseria Source Urine
== END 2018-06-29 14:14 | disposition home or self-care (01) | DRG 885 ==
LOC: EC 15:29 → 3MHU 20:45
PROVIDERS: ADMIT Psychiatry & Neurology Psychiatry; ATTEND Psychiatry & Neurology Psychiatry
DX: F31.0 Bipolar disorder, current episode hypomanic (principal); R44.0 Auditory hallucinations; R45.851 Suicidal ideations; F19.939 Other psychoactive substance use, unspecified with withdrawal, unspecified; E66.3 Overweight; F60.3 Borderline personality disorder; F41.9 Anxiety disorder, unspecified; F17.200 Nicotine dependence, unspecified, uncomplicated; N89.8 Other specified noninflammatory disorders of vagina; B19.20 Unspecified viral hepatitis C without hepatic coma; Z79.899 Other long term (current) drug therapy; Z68.34 Body mass index [BMI] 34.0-34.9, adult; Z88.6 Allergy status to analgesic agent; Z88.1 Allergy status to other antibiotic agents; Z88.2 Allergy status to sulfonamides; Z88.8 Allergy status to other drugs, medicaments and biological substances
CPT/HCPCS: 80306; 81003; 81025; 82075; 85025; 87491; 87591; 99285

== ENCOUNTER 2018-07-12 17:09 | Emergency (ER) | payer OTHER ==
[2018-07-12 17:29] VITALS: RESP 18; TEMP 98
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
[2018-07-12] MEDS ORDERED: IBUPROFEN 600 MG TAB PO STA (18:41)
[2018-07-12] MEDS ORDERED: metroNIDAZOLE 500 MG TAB PO STA (18:46)
[2018-07-12] MEDS ORDERED: cefTRIAXone IN SWFI 1,000 MG/10 ML SYRINGE IVP STA (18:48)
[2018-07-12] MEDS ORDERED: DOXYCYCLINE 100 MG CAP PO STA (19:48)
--- NOTE | 2018-07-12 20:07 | US ---
EXAMINATION TYPE: US transvaginal DATE OF EXAM: 07/12/2018 COMPARISON: NONE CLINICAL HISTORY: concern for tubo abscess. Pain and bleeding. TECHNIQUE: Transvaginal (TV). EXAM MEASUREMENTS: Uterus: 9.3 x 5.4 x 5.4 cm Endometrial Stripe: 1.4 cm Right Ovary: 2.6 x 1.6 x 2.0cm 1. Uterus: Anteverted Nabothian cysts seen. 2. Endometrium: Hypoechoic area adjacent measuring1.6 x .6 x 1.7cm. 3. Right Ovary: wnl 4. Left Ovary: Obscured by overlying bowel gas Spectral, color and waveform doppler imaging shows good arterial and venous flow within the right o vary. 5. Bilateral Adnexa: wnl 6. Posterior cul-de-sac: wnl Heterogeneous anteverted uterus is present. There is oval slightly hypoechoic structure within uterin e myometrium of uncertain etiology. Tiny nabothian cysts are seen in the cervix. Endometrium is poorl y visualized but measures up to 14 mm in thickness. Last known menstrual period not stated by technol ogist. No free fluid in pelvic cul-de-sac. Right ovary is seen and normal in size with scattered peripheral follicles. Left ovary is not clearly identified. IMPRESSION: Suboptimal study due to body habitus, no thick walled pelvic fluid collection to suggest abscess identified.
[2018-07-12 20:18] VITALS: BP 124/80; PULSE 85
[2018-07-12 20:19] LABS: Appearance,Urine Cloudy (Clear); Bilirubin,Urine Negative (Negative); Blood,Urine Negative (Negative); Color,Urine Yellow; Glucose,Urine (UA) Negative (Negative); Ketones,Urine Negative (Negative); Leukocyte Esterase,Urine Negative (Negative); Mucus,Urine Rare /hpf; Nitrite,Urine Negative (Negative); Protein,Urine Negative (Negative); RBC,Urine 1 /hpf (0-5); Specific Gravity,Urine 1.019 (1.001-1.035); Squamous Epithelial Cell,Urine 1 /hpf (0-4); Urobilinogen,Urine <2.0 mg/dL (<2.0); WBC,Urine <1 /hpf (0-5)
[2018-07-13 14:44] LABS: N. gonorrhoeae,PCR Negative (Neg,Equiv); Neisseria Source Vagina
[2018-07-13 14:49] LABS: C. trachomatis,PCR Negative (Neg,Equiv); Chlamydia trachomatis Source Vagina
== END 2018-07-12 20:45 | disposition home or self-care (01) ==
LOC: EC 17:09
DX: N89.8 Other specified noninflammatory disorders of vagina (principal); R10.2 Pelvic and perineal pain; F17.200 Nicotine dependence, unspecified, uncomplicated; Z32.02 Encounter for pregnancy test, result negative; Z98.51 Tubal ligation status; Z88.1 Allergy status to other antibiotic agents; Z88.2 Allergy status to sulfonamides; Z88.6 Allergy status to analgesic agent; Z88.8 Allergy status to other drugs, medicaments and biological substances; Z91.410 Personal history of adult physical and sexual abuse
CPT/HCPCS: 76830; 81001; 81025; 87070; 87205; 87491; 87591; 87808; 93976; 99284